=== PATIENT | female | born 1975 | race Caucasian/White ===

== ENCOUNTER → 2022-01-19 | Outpatient (CLI) | payer OTHER ==
[2022-01-19 13:55] LABS: BASO % 0 % (0-3); EOS % 1 % (0-3); HEMATOCRIT 30.1 % (36.0-47.0); HEMOGLOBIN 10.1 g/dL (12.0-15.5); LYMPH # 0.4 x10^3/uL (1.0-4.8); LYMPH % 5 % (24-48); MEAN CORPUSCULAR HEMOGLOBIN 41 pg (25-35); MEAN CORPUSCULAR HGB CONC 34 g/dL (31-37); MEAN CORPUSCULAR VOLUME 122 fL (79-100); MONO # 0.4 x10^3/uL (0.0-1.1); MONO % 6 % (0-9); NEUT % 88 % (31-73); RED BLOOD COUNT 2.46 x10^6/uL (3.50-5.40); RED CELL DISTRIBUTION WIDTH 19.5 % (11.5-14.5); WHITE BLOOD COUNT 6.8 x10^3/uL (4.0-11.0)
[2022-01-19 14:13] LABS: ALBUMIN 3.6 g/dL (3.4-5.0); CALCIUM 9.9 mg/dL (8.5-10.1); CREATININE 0.9 mg/dL (0.6-1.0); GFR 66.8; POTASSIUM 4.2 mmol/L (3.5-5.1); TOTAL BILIRUBIN 17.8 mg/dL (0.2-1.0); TOTAL PROTEIN 7.1 g/dL (6.4-8.2)
[2022-01-19 14:41] LABS: PLATELET COUNT 19 x10^3/uL (140-400)
[2022-01-19 20:58] LABS: % LYMPHS 2 % (24-48); % SEGS 92 % (35-66)
[2022-01-19 20:59] LABS: % BASOS 1 % (0-3); % MONOS 5 % (0-10); PLT ESTIMATE DECREASED (ADEQUATE)
== END ==
LOC: LAB 12:53
PROVIDERS: ATTEND Internal Medicine
DX: K70.30 Alcoholic cirrhosis of liver without ascites (principal); K70.10 Alcoholic hepatitis without ascites
CPT/HCPCS: 36415; 80053; 85007; 85025; 85610

== ENCOUNTER → 2022-02-02 | Outpatient (CLI) | payer OTHER ==
[2022-02-02 15:00] LABS: BASO # 0.1 x10^3/uL (0.0-0.2); BASO % 1 % (0-3); EOS % 0 % (0-3); HEMATOCRIT 29.2 % (36.0-47.0); HEMOGLOBIN 10.1 g/dL (12.0-15.5); LYMPH # 0.6 x10^3/uL (1.0-4.8); LYMPH % 6 % (24-48); MEAN CORPUSCULAR HEMOGLOBIN 40 pg (25-35); MEAN CORPUSCULAR HGB CONC 35 g/dL (31-37); MEAN CORPUSCULAR VOLUME 117 fL (79-100); MONO # 0.8 x10^3/uL (0.0-1.1); MONO % 8 % (0-9); NEUT # 8.7 x10^3uL (1.8-7.7); NEUT % 85 % (31-73); RED CELL DISTRIBUTION WIDTH 17.1 % (11.5-14.5); WHITE BLOOD COUNT 10.3 x10^3/uL (4.0-11.0)
[2022-02-02 15:07] LABS: ALBUMIN 2.8 g/dL (3.4-5.0); ALBUMIN/GLOBULIN RATIO 0.8 (1.0-1.7); CREATININE 0.6 mg/dL (0.6-1.0); GFR 106.7; POTASSIUM 3.9 mmol/L (3.5-5.1); TOTAL BILIRUBIN 10.3 mg/dL (0.2-1.0); TOTAL PROTEIN 6.5 g/dL (6.4-8.2)
[2022-02-02 16:13] LABS: PLATELET COUNT 24 x10^3/uL (140-400)
[2022-02-02 16:31] LABS: BURR CELLS PRESENT; OVALOCYTES PRESENT; TARGET CELLS PRESENT; TEAR DROP CELLS PRESENT
[2022-02-02 16:33] LABS: ANISOCYTOSIS PRESENT; PLT ESTIMATE DECREASED (ADEQUATE)
== END ==
LOC: LAB 13:45
PROVIDERS: ATTEND Internal Medicine
DX: K70.30 Alcoholic cirrhosis of liver without ascites (principal)
CPT/HCPCS: 36415; 80053; 85025; 85610